=== PATIENT | female | born 1950 | race Two or more races ===

== ENCOUNTER 2024-05-09 11:04 | Outpatient (CLI) | payer OTHER | END 2024-05-09 11:06 | disposition home or self-care (01) | LOC: MAMO-SONO 11:04 | PROVIDERS: ATTEND Obstetrics & Gynecology | DX: N60.11 Diffuse cystic mastopathy of right breast (principal) ==

== ENCOUNTER 2024-05-09 11:10 | Outpatient (CLI) | payer OTHER | END 2024-05-09 11:11 | disposition home or self-care (01) | LOC: NUCLEAR 11:10 | PROVIDERS: ATTEND Obstetrics & Gynecology | DX: M81.0 Age-related osteoporosis without current pathological fracture (principal) ==